=== PATIENT | male | born 1950 | race Caucasian/White ===

== ENCOUNTER 2017-01-18 00:21 | Observation (INO) | payer OTHER, MEDICARE ==
--- NOTE | 2017-01-18 00:37 | PDOC ---
History of Present Illness - General Chief Complaint: Pain, Acute Stated Complaint: PAIN IN RIGHT SHOULDER INTO BACK Time Seen by Provider: 01/18/17 00:28 History Source: Patient Exam Limitations: No Limitations - History of Present Illness Initial Comments: 01/18/17 00:37 This is a healthy 66-year-old male who denies any prior medical history. Patient said he takes no medications and is healthy. Patient comes in complaining of Both anterior and posterior chest pain. Patient said pain is worse when he takes a deep breath. Patient denies any cough, congestion or upper respiratory tract symptoms. Patient denies any nausea vomiting or diarrhea. Patient said that he has had no fevers but feels kind of sweaty here in the emergency room. Patient said that he has had some pain in his right shoulder and right flank recently but they had resolved and then today developed pain in his abdomen which has also resolved and then tonight the pain started in his chest. Patient denies any history of smoking, illegal drug use, . There is a questionable family history of heart disease patient said that his grandparents on both sides in their 40s of a heart problem but he does not know what it is C said otherwise no one else has had a heart attack or coronary artery disease. PAST MEDICAL HISTORY: no significant history PAST SURGICAL HISTORY: no significant history FAMILY HISTORY: no pertinant history SOCIAL HISTORY: Pt lives with family and is employed. MEDICATIONS: reviewed ALLERGIES: As per nursing notes Review of Systems General: No fevers or chills, no weakness, no weight loss HEENT: No change in vision. No sore throat,. No ear pain CardioVascular: No chest pain or shortness of breath Respiratory:No cough, or wheezing. Gastrointestinal: no nausea, vomitting, diarrhea or constipation, No rectal bleeding Genitourinary: No dysuria, hematuria, or frequency Musculoskeletal: No joint or muscle pain or swelling Neurologic: No headache, vertigo, dizziness or loss of consciousness Psychiatric: nor depression Skin: No rashes or easy bruising Endocrine: no increased thirst or abnormal weight change Allergic: no skin or latex allergy All other systems reviewed and normal Exam: General: Well-nourished well-developed individual, no acute distress HEENT: Throat: Normal, tonsils normal, no erythema or exudate Neck: Supple, no meningeal signs, no lymphadenopathy Eyes::Pupils equal reactive and round, extraocular motion intact Chest: Nontender to palpation Cardiac: S1-S2 normal, regular rate and rhythm, no murmurs rubs or gallops Respiratory: Lungs clear to auscultation bilateral Abdomen: Soft, nondistended, normal bowel sounds, nontender to palpation diffusely Extremities: Warm, dry, no cyanosis, clubbing, or edema Skin: No rashes Neuro: Alert and oriented x3, nonfocal exam, grossly intact, normal gait Psych: Normal mood and affect 01/18/17 00:52 EKG atrial fibrillation at rate of [address]-T wave changes Patient earlier denied any prior medical history but when asked if he had ever had an abnormal EKG he said that he had a rapid heat heartbeat at some point in the past, last episode was approximately 15 years ago he does not know what it was called but he said they told him it was benign in that he did not need to do anything about it and it resolved fairly quickly on its own. And he has not had palpitations or rapid heartbeat since. Patient will be admitted to an inpatient observation bed to rule out acute coronary syndrome and for further evaluation and management of his atrial fibrillation. Discussed with hospitalist who accepted admission. Past History - Past Medical History Allergies/Adverse Reactions: Allergies Allergy/AdvReac Type Severity Reaction Status Date / Time hydrocortisone acetate Allergy Severe Difficulty Verified 04/16/13 06:29 [From Hydrocortone Acetate] Breathing Home Medications: Ambulatory Orders Amoxicillin - [Amoxicillin 875mg Tablet -] 875 mg PO BID 04/16/13 GI Disorders: Yes (DIVERTICULITIS) Suicide Attempt (Hx): No Other medical history: PERIPHERAL NEUROPATHY - Surgical History Abdominal Surgery: Yes (VENTRAL HERNIA REPAIR) - Psycho/Social/Smoking Cessation Hx Anxiety: No Suicidal Ideation: No Smoking Status: No Smoking History: Never smoked Have you smoked in the past 12 months: No Number of Cigarettes Smoked Daily: 0 Information on smoking cessation initiated: No Hx Alcohol Use: No Drug/Substance Use Hx: No Substance Use Type: None *Physical Exam - Vital Signs Last Vital Signs Temp Pulse Resp BP Pulse Ox 97.6 F 90 18 118/64 97 01/18/17 00:23 01/18/17 00:23 01/18/17 00:23 01/18/17 00:23 01/18/17 00:23 ED Treatment Course - LABORATORY CBC & Chemistry Diagram: 01/18/17 00:45 01/18/17 00:45 *DC/Admit/Observation/Transfer Diagnosis at time of Disposition: New onset a-fib, Chest pain - Discharge Dispostion Disposition: HOME Condition at time of disposition: Stable Admit: Yes
[2017-01-18] MEDS ORDERED: KETOROLAC TROMETHAMINE 30 MG/1 ML VIAL IVPUSH ONE (00:40)
[2017-01-18] MEDS ORDERED: dilTIAZem HCL 60 MG TABLET (FP) PO ONE (00:53)
[2017-01-18] MEDS ORDERED: KETOROLAC TROMETHAMINE 30 MG/1 ML VIAL ONE (00:54)
[2017-01-18] MEDS ORDERED: ASPIRIN 81 MG CHEWABLE TABLETS PO ONE (00:58)
[2017-01-18] MEDS ORDERED: ASPIRIN 81 MG CHEWABLE TABLETS ONE (01:04)
[2017-01-18] MEDS ORDERED: dilTIAZem HCL 30 MG TABLET (FP) ONE (01:04)
[2017-01-18 01:10] LABS: URINE APPEARANCE CLEAR; URINE BILIRUBIN NEGATIVE (NEGATIVE); URINE BLOOD NEGATIVE (NEGATIVE); URINE COLOR YELLOW; URINE GLUCOSE (UA) NEGATIVE (NEGATIVE); URINE KETONE NEGATIVE (NEGATIVE); URINE LEUK ESTERASE NEGATIVE (NEGATIVE); URINE NITRITE NEGATIVE (NEGATIVE); URINE PROTEIN NEGATIVE (NEGATIVE); URINE UROBILINOGEN NEGATIVE mg/dL (0.2-1.0)
[2017-01-18 01:13] LABS: BASOPHIL 0.4 % (0-2.0); EOSINOPHIL 1.4 % (0-4.5); MCH 30.1 pg (25.7-33.7); MCHC 34.1 g/dl (32.0-35.9); MEAN CELL VOLUME 88.3 fl (80-96); MEAN PLT VOLUME 8.3 fl (7.5-11.1); NEUTROPHILS 71.7 % (42.8-82.8); PLATELET COUNT 273 K/MM3 (134-434); WHITE BLOOD COUNT 9.6 K/mm3 (4.0-10.0)
[2017-01-18 01:49] LABS: ALBUMIN 3.7 g/dl (3.4-5.0); ALK PHOS 76 U/L (45-117); ANION GAP 8 (8-16); BILIRUBIN,TOTAL 0.5 mg/dL (0.2-1.0); CALCIUM 8.9 mg/dL (8.5-10.1); CO2 30 mmol/L (21-32); CREATININE 1.4 mg/dL (0.7-1.3); GLUCOSE,RANDOM 102 mg/dL (74-106); SGOT/AST 17 U/L (15-37); SGPT/ALT 27 U/L (12-78); TOT PROT 7.6 g/dl (6.4-8.2)
[2017-01-18 02:09] LABS: CPK 92 IU/L (39-308)
[2017-01-18 02:10] LABS: TROPONIN I < 0.02 ng/ml (0.00-0.05)
[2017-01-18 02:49] LABS: INR 1.05 (0.82-1.09); PROTHROMBIN TIME (PATIENT) 11.6 SEC (9.98-11.88)
[2017-01-18] MEDS ORDERED: SODIUM CHLORIDE 1,000 ML IV ONE (03:57)
[2017-01-18 05:30] VITALS: BMI 26.6
[2017-01-18] MEDS ORDERED: HEPARIN NA (PORCINE) 5,000 UNITS/ML 1ML VIAL SQ SCH (06:00)
[2017-01-18 08:19] LABS: CHOLESTEROL 182 mg/dl; CPK 64 IU/L (39-308); MAGNESIUM 2.1 mg/dL (1.8-2.4); PHOSPHOROUS 3.2 mg/dl (2.5-4.6)
[2017-01-18 09:07] LABS: TROPONIN I (DFP) < 0.03 ng/ml (0.03-0.50)
[2017-01-18 10:14] LABS: THYROID STIMULATING HORMONE 3.17 uIU/ml (0.358-3.74)
--- NOTE | 2017-01-18 11:00 | HP ---
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 He states that he has had right shoulder pain for 1 week for which he saw his chiropractor 5 times last week with minimal improvement. The pain from his shoulder slowly moved down his right side into right hip and pelvis. He took 1 dose of Motrin 600mg which relieved the pain. Approximately 6-8 hours after taking the Motrin the pain returned and was now in his chest. 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 " He had diaphoresis and reports weakness and fatigue worsening over the past month. He denies fevers, nausea, vomiting, SOB, dizziness or coughing. He states his last EGD showed no esophageal dysplasia. ER course was notable for: (1) New onset A-fib (2) CTA(-) (3) CXR- No Acute pathology or change from previous film (4) mildly elevated BNP Recent Travel: denies PAST MEDICAL HISTORY: Kirk's esophagus PAST SURGICAL HISTORY: denies Social History: Smoking: denies Alcohol: occasional Drugs: denies Allergies hydrocortisone acetate [From Hydrocortone Acetate] Allergy (Severe, Verified 07/28 06:29) Difficulty Breathing HOME MEDICATIONS: Home Medications Medication Instructions Recorded Amoxicillin - [Amoxicillin 875mg 875 mg PO BID 04/16/13 Tablet -] REVIEW OF SYSTEMS CONSTITUTIONAL: Present- diaphoresis, generalized weakness, malaise Absent: fever, chills, loss of appetite, weight change HEENT: Absent: rhinorrhea, nasal congestion, throat pain, throat swelling, difficulty swallowing, mouth swelling, ear pain, eye pain, visual changes CARDIOVASCULAR: Present- chest pain, palpitations, irregular heart rate Absent: syncope, lightheadedness, peripheral edema RESPIRATORY: Absent: cough, shortness of breath, dyspnea with exertion, orthopnea, wheezing, stridor, hemoptysis GASTROINTESTINAL: Absent: abdominal pain, abdominal distension, nausea, vomiting, diarrhea, constipation, melena, hematochezia GENITOURINARY: Absent: dysuria, frequency, urgency, hesitancy, hematuria, flank pain, genital pain MUSCULOSKELETAL: Absent: myalgia, arthralgia, joint swelling, back pain, neck pain SKIN: Absent: rash, itching, pallor HEMATOLOGIC/IMMUNOLOGIC: Absent: easy bleeding, easy bruising, lymphadenopathy, frequent infections ENDOCRINE: Absent: unexplained weight gain, unexplained weight loss, heat intolerance, cold intolerance NEUROLOGIC: Absent: headache, focal weakness or paresthesias, dizziness, unsteady gait, seizure, mental status changes, bladder or bowel incontinence PSYCHIATRIC: Absent: anxiety, depression, suicidal or homicidal ideation, hallucinations. PHYSICAL EXAMINATION Vital Signs - 24 hr 01/18/17 01/18/17 01/18/17 03:33 05:20 07:00 Temperature 97.7 F 97.7 F Pulse Rate 72 79 Pulse Rate [ 80 Left] Respiratory 18 18 18 Rate Blood Pressure 93/62 96/52 Blood Pressure 101/74 [Right] O2 Sat by Pulse 97 98 Oximetry (%) 01/18/17 01/18/17 01/18/17 07:10 09:00 09:25 Temperature 98.4 F Pulse Rate 76 Pulse Rate [ Left] Respiratory 18 18 Rate Blood Pressure 114/56 Blood Pressure [Right] O2 Sat by Pulse 97 97 Oximetry (%) GENERAL: Awake, alert, and fully oriented, in no acute distress. HEAD: Normal with no signs of trauma. EYES: Pupils equal, round and reactive to light, extraocular movements intact, sclera anicteric, conjunctiva clear. No lid lag. EARS, NOSE, THROAT: Ears normal, nares patent, oropharynx clear without exudates. Moist mucous membranes. NECK: Normal range of motion, supple without lymphadenopathy, JVD, or masses. LUNGS: Breath sounds equal, clear to auscultation bilaterally. No wheezes, and no crackles. No accessory muscle use. HEART: Irregular rate and rhythm, normal S1 and S2 with 2/6 systolic murmur at LSB, rub or gallop. ABDOMEN: Soft, nontender, not distended, normoactive bowel sounds, no guarding, no rebound, no masses. No hepatomegaly or splenomegaly. (-) Dow's MUSCULOSKELETAL: Normal range of motion at all joints. No bony deformities or tenderness. No CVA tenderness. UPPER EXTREMITIES: 2+ pulses, warm, well-perfused. No cyanosis. No clubbing. No peripheral edema. LOWER EXTREMITIES: 2+ pulses, warm, well-perfused. No calf tenderness. No peripheral edema. NEUROLOGICAL: Cranial nerves II-XII intact. Normal speech. Normal gait. PSYCHIATRIC: Cooperative. Good eye contact. Appropriate mood and affect. SKIN: Warm, dry, normal turgor, no rashes or lesions noted, normal capillary refill. Laboratory Results - last 24 hr 01/18/17 01/18/17 01/18/17 02:39 06:00 06:00 INR 1.05 Hemoglobin A1c % 5.7 Phosphorus 3.2 Magnesium 2.1 Creatine Kinase 64 Troponin I < 0.03 L B-Natriuretic Peptide 808.56 H Triglycerides 136 Cholesterol 182 Total LDL Cholesterol 130 HDL Cholesterol 25 L TSH 3.17 ASSESSMENT/PLAN: A: 66yo man with PMH Kirk's esophagus who has chest pressure and new onset a- fib. P: 1. Chest pain (atypical)- ACS vs Kirk's - troponins (-) x2 - serial trop - mildly elevated BNP- echo pending - EKG with new onset afib - initiate NOAC - ASA 81mg held - telemetry - Cardiology Tamiko consulted 2. New onset A-fib - Start Xarelto 20mg - telemetry - [id number] - Metoprolol started by Tamiko Morrison consulted 3. h/o Kirk's esophagus - f/u as outpatient 4. F/E/N - Low Na diet - replete prn 5. PPX - OOB - NOAC Dispo- requires observation of acute medical conditions Visit type - Emergency Visit Emergency Visit: Yes ED Registration Date: 01/18/17 Care time: The patient presented to the Emergency Department on the above date and was hospitalized for further evaluation of their emergent condition. - New Patient This patient is new to me today: Yes Date on this admission: 01/18/17 - Critical Care Critical Care patient: No
--- NOTE | 2017-01-18 12:06 | CON.CARD ---
Consult Consult Specialty:: Cardiology Referred by:: Hospitalist Service Reason for Consultation:: Cardiac evaluation - History of Present Illness Chief Complaint: New onset AF with chest discomfort History of Present Illness: Patient is a 66 year old male with history of Severino's esophagus who presents with mid sternal/epigastric discomfort/pressure and palpitation. He has been feeling weak for past 1 month and also complained of right shoulder pain for over a week for which he saw a chiropractor. He also took Motrin 600mg which did relieve the pain. He came in once he started to have this mid sternal pressure and sweating. ECG revealed atrial fibrillation. He was given a shot of Lovenox and was given Diltiazem. He is awake and alert. He denies paroxysmal nocturnal dyspnea or orthopnea. He denies fever or chills. He denies headache or lightheadedness. He reports of heart rhythm problem about 30 years ago and had seen a director of vocational guidance, but no further intervention or treatment was given at that time. He has not taken any other medication for the past 40 years. He denies shortness of breath. Cardiology consultation was called for further evaluation. - History Source History Provided By: Patient, Family Member, Medical Record Limitations to Obtaining History: No Limitations - Past Medical History Gastrointestinal: Yes: Other (Severino's esophagus) - Past Surgical History Additional Surgical History: Abdominal hernia surgery - Alcohol/Substance Use Hx Alcohol Use: No History of Substance Use: reports: None - Smoking History Smoking history: Never smoked Have you smoked in the past 12 months: No Aproximately how many cigarettes per day: 0 Home Medications - Allergies Allergies/Adverse Reactions: Allergies Allergy/AdvReac Type Severity Reaction Status Date / Time hydrocortisone acetate Allergy Severe Difficulty Verified 04/16/13 06:29 [From Hydrocortone Acetate] Breathing - Home Medications Home Medications: Ambulatory Orders Amoxicillin - [Amoxicillin 875mg Tablet -] 875 mg PO BID 04/16/13 Review of Systems - Review of Systems Constitutional: denies: Chills, Fever Cardiovascular: reports: Chest Pain, Palpitations. denies: Shortness of Breath Respiratory: reports: SOB. denies: Cough, Hemoptysis, Orthopnea, PND, Wheezing Gastrointestinal: reports: Constipation. denies: Abdominal Pain, Diarrhea, Melena, Nausea, Rectal Bleeding, Vomiting Genitourinary: denies: Dysuria Musculoskeletal: denies: Joint Pain Neurological: denies: Confusion, Dizziness, Headache, Numbness, Seizure, Syncope Vital Signs: Vital Signs Temperature 98.4 F 01/18/17 09:25 Pulse Rate 76 01/18/17 09:25 Respiratory Rate 18 01/18/17 09:25 Blood Pressure 114/56 01/18/17 09:25 O2 Sat by Pulse Oximetry (%) 97 01/18/17 09:00 Neck: Yes: Supple Respiratory: Yes: CTA Bilaterally Gastrointestinal: Yes: Normal Bowel Sounds, Soft. No: Tenderness Cardiovascular: Yes: Pulse Irregular JVD: No Carotid Bruit: No PMI: Non-Displaced Heart Sounds: Yes: S1, S2. No: Gallop Murmur: Yes: Systolic Murmur, Grade 1 Edema: No - Other Data Labs, Other Data: INR, PTT INR 1.05 (0.82-1.09) 01/18/17 02:39 Troponin, BNP 01/18/17 06:00 Troponin I < 0.03 L B-Natriuretic Peptide 808.56 H Laboratory Results - last 24 hr 01/18/17 01/18/17 01/18/17 00:45 00:45 00:45 WBC 9.6 D RBC 5.22 Hgb 15.7 Hct 46.1 MCV 88.3 MCH 30.1 MCHC 34.1 RDW 13.0 Plt Count 273 D MPV 8.3 Neutrophils % 71.7 Lymphocytes % 18.8 D Monocytes % 7.7 Eosinophils % 1.4 Basophils % 0.4 INR D-Dimer 554 H Sodium 140 Potassium 4.2 Chloride 102 Carbon Dioxide 30 Anion Gap 8 BUN 29 H D Creatinine 1.4 H D Creat Clearance w eGFR 50.40 Random Glucose 102 Hemoglobin A1c % Calcium 8.9 Phosphorus Magnesium Total Bilirubin 0.5 D AST 17 ALT 27 D Alkaline Phosphatase 76 D Creatine Kinase Troponin I B-Natriuretic Peptide Total Protein 7.6 Albumin 3.7 Triglycerides Cholesterol Total LDL Cholesterol HDL Cholesterol Lipase 274 TSH Urine Color Urine Appearance Urine pH Ur Specific Mcgraw Urine Protein Urine Glucose (UA) Urine Ketones Urine Blood Urine Nitrite Urine Bilirubin Urine Urobilinogen Ur Leukocyte Esterase 01/18/17 01/18/17 01/18/17 01:02 01:26 02:39 WBC RBC Hgb Hct MCV MCH MCHC RDW Plt Count MPV Neutrophils % Lymphocytes % Monocytes % Eosinophils % Basophils % INR 1.05 D-Dimer Sodium Potassium Chloride Carbon Dioxide Anion Gap BUN Creatinine Creat Clearance w eGFR Random Glucose Hemoglobin A1c % Calcium Phosphorus Magnesium Total Bilirubin AST ALT Alkaline Phosphatase Creatine Kinase 92 Troponin I < 0.02 B-Natriuretic Peptide Total Protein Albumin Triglycerides Cholesterol Total LDL Cholesterol HDL Cholesterol Lipase TSH Urine Color Yellow Urine Appearance Clear Urine pH 5.0 Ur Specific Mcgraw >= 1.030 H Urine Protein Negative Urine Glucose (UA) Negative Urine Ketones Negative Urine Blood Negative Urine Nitrite Negative Urine Bilirubin Negative Urine Urobilinogen Negative Ur Leukocyte Esterase Negative 01/18/17 01/18/17 06:00 06:00 WBC RBC Hgb Hct MCV MCH MCHC RDW Plt Count MPV Neutrophils % Lymphocytes % Monocytes % Eosinophils % Basophils % INR D-Dimer Sodium Potassium Chloride Carbon Dioxide Anion Gap BUN Creatinine Creat Clearance w eGFR Random Glucose Hemoglobin A1c % 5.7 Calcium Phosphorus 3.2 Magnesium 2.1 Total Bilirubin AST ALT Alkaline Phosphatase Creatine Kinase 64 Troponin I < 0.03 L B-Natriuretic Peptide 808.56 H Total Protein Albumin Triglycerides 136 Cholesterol 182 Total LDL Cholesterol 130 HDL Cholesterol 25 L Lipase TSH 3.17 Urine Color Urine Appearance Urine pH Ur Specific Mcgraw Urine Protein Urine Glucose (UA) Urine Ketones Urine Blood Urine Nitrite Urine Bilirubin Urine Urobilinogen Ur Leukocyte Esterase Atrial fibrillation at 93 bpm, no ST-T abnormality Echo: Pending Imaging - Results Chest X-ray: Report Reviewed (Unremarkable) Cat Scan: Report Reviewed (Chest CTA - no pulmonary embolism) EKG: Report Reviewed Problem List - Problems (1) Chest pain Code(s): R07.9 - CHEST PAIN, UNSPECIFIED Qualifiers: Chest pain type: unspecified Qualified Code(s): R07.9 - Chest pain, unspecified (2) New onset a-fib Code(s): I48.91 - UNSPECIFIED ATRIAL FIBRILLATION (3) Severino esophagus Code(s): K22.70 - SEVERINO'S ESOPHAGUS WITHOUT DYSPLASIA Qualifiers: Severino's esophagus type: without dysplasia Qualified Code(s): K22.70 - Severino's esophagus without dysplasia Assessment/Plan 1. New onset atrial fibrillation - [id number] score of 1 2. Chest pain syndrome - atypical with negative troponin 3. History of Severino's esophagus 4. Elevated creatinine - acute on chronic kidney ?dehydration 5. Borderline hypercholesterolemia PLAN: 1. As his [id number] score is 1, he would most likely need ASA, but for now would use NOAC short term. May use Xarelto 20 mg once a day. Add Metoprolol 25 mg BID. ASA may be held for now. 2. Transthoracic echocardiography to assess LV/RV and valvular function 3. If patient remains in AF, may consider MUSA +/- synchronized cardioversion 4. Eventually may consider stress testing, but this can be done as outpatient. 5. Serial cardiac enzymes 6. Hydration and monitor renal function Further plans are to follow Eric Morrison MD
[2017-01-18 12:34] LABS: CPK 72 IU/L (39-308)
[2017-01-18 12:45] LABS: TROPONIN I (DFP) < 0.03 ng/ml (0.03-0.50)
[2017-01-18] MEDS: METOPROLOL TARTRATE 25 MG TABLET (FP) PO SCH ×2 (14:09→22:05)
[2017-01-18] MEDS ORDERED: RIVAROXABAN 20 MG TABLET PO SCH (15:00)
[2017-01-18] MEDS ORDERED: RIVAROXABAN 10 MG TABLET PO SCH (15:00)
[2017-01-18] MEDS: RIVAROXABAN 10 MG TABLET PO SCH (15:23)
--- NOTE | 2017-01-19 07:32 | EKG ---
Test Reason : Blood Pressure : / mmHG Vent. Rate : 113 BPM Atrial Rate : 150 BPM P-R Int : 000 ms QRS Dur : 092 ms QT Int : 334 ms P-R-T Axes : 000 034 039 degrees QTc Int : 458 ms ATRIAL FIBRILLATION WITH RAPID VENTRICULAR RESPONSE ABNORMAL ECG WHEN COMPARED WITH ECG OF 16-APR-2013 06:30, ATRIAL FIBRILLATION HAS REPLACED SINUS RHYTHM VENT. RATE HAS INCREASED BY 55 BPM Confirmed by GARRICK GOLDSMITH MD ([id number]) on 01/19/2017 7:32:04 AM Referred By: Confirmed By:GARRICK GOLDSMITH MD
--- NOTE | 2017-01-19 08:56 | EKG ---
Test Reason : Blood Pressure : / mmHG Vent. Rate : 093 BPM Atrial Rate : 357 BPM P-R Int : 000 ms QRS Dur : 094 ms QT Int : 366 ms P-R-T Axes : 000 029 024 degrees QTc Int : 455 ms ATRIAL FIBRILLATION ABNORMAL ECG WHEN COMPARED WITH ECG OF 18-JAN-2017 00:50, Ventricular rate has decreased Confirmed by GARRICK GOLDSMITH MD ([id number]) on 01/19/2017 8:56:02 AM Referred By: JAGDISH VALENTIN Confirmed By:GARRICK GOLDSMITH MD
[2017-01-19] MEDS: METOPROLOL TARTRATE 25 MG TABLET (FP) PO SCH ×2 (09:44→21:17)
[2017-01-19] MEDS: RIVAROXABAN 10 MG TABLET PO SCH (09:44)
[2017-01-19] MEDS ORDERED: ASPIRIN 81 MG CHEWABLE TABLETS PO SCH (10:00)
--- NOTE | 2017-01-19 12:37 | PN ---
Physical Exam: SUBJECTIVE: Patient seen and examined, patient is ambulatory at the bedside, denies any chest pain or shortness of breath. OBJECTIVE: patient is a a 66yo man with PMH Kirk's esophagus Vital Signs Period Temp Pulse Resp BP Sys/Luu Pulse Ox Last 24 Hr 97.7 F-98.5 F 50-85 17-18 101-108/52-61 96-99 GENERAL: The patient is awake, alert, and fully oriented, in no acute distress. HEAD: Normal with no signs of trauma. EYES: PERRL, extraocular movements intact, sclera anicteric, conjunctiva clear. No ptosis. ENT: Ears normal, nares patent, oropharynx clear without exudates, moist mucous membranes. NECK: Trachea midline, full range of motion, supple. LUNGS: Breath sounds equal, clear to auscultation bilaterally, no wheezes, no crackles, no accessory muscle use. HEART: Regular rate and rhythm, S1, S2 without murmur, rub or gallop. ABDOMEN: Soft, nontender, nondistended, normoactive bowel sounds, no guarding, no rebound, no hepatosplenomegaly, no masses. EXTREMITIES: 2+ pulses, warm, well-perfused, no edema. NEUROLOGICAL: Cranial nerves II through XII grossly intact. Normal speech, gait not observed. PSYCH: Normal mood, normal affect. SKIN: Warm, dry, normal turgor, no rashes or lesions noted Laboratory Results - last 24 hr 01/18/17 12:00 Creatine Kinase 72 Troponin I < 0.03 L Active Medications Generic Name Dose Route Start Last Admin Trade Name Freq PRN Reason Stop Dose Admin Metoprolol Tartrate 25 mg 01/18/17 12:30 01/19/17 09:44 Lopressor - PO 25 mg BID AKUA Administration Rivaroxaban 20 mg 01/18/17 15:15 01/19/17 09:44 Xarelto - PO 20 mg DAILY AKUA Administration ASSESSMENT/PLAN: 1. card: new onset afib - pt converted to NSR - troponin x 3 wnl - continue xarelto - pending echo - Dr Morrison, cardiology consulted and following 2.GI: h/o Kirk's esophagus - f/u as outpatient 4. F/E/N - Low Na diet - replete prn 5. PPX - OOB - NOAC Dispo- requires observation of acute medical conditions Visit type - Emergency Visit Emergency Visit: Yes ED Registration Date: 01/18/17 Care time: The patient presented to the Emergency Department on the above date and was hospitalized for further evaluation of their emergent condition. - New Patient This patient is new to me today: No - Critical Care Critical Care patient: No - Discharge Referral Referred to [facility] No
[2017-01-19 17:09] LABS: ANION GAP 3 (8-16); CALCIUM 8.4 mg/dl (8.4-10.2); CO2 30 mmol/L (22-28); CREATININE 0.9 mg/dl (0.6-1.3); GLUCOSE,RANDOM 97 mg/dl (74-106)
[2017-01-19 17:11] LABS: BASOPHIL 0.8 % (0-2.0); EOSINOPHIL 2.5 % (0-4.5); MCH 30.4 pg (25.7-33.7); MCHC 35.2 g/dl (32.0-35.9); MEAN CELL VOLUME 86.6 fl (80-96); MEAN PLT VOLUME 8.6 fl (7.5-11.1); NEUTROPHILS 65.8 % (42.8-82.8); PLATELET COUNT 199 K/MM3 (134-434); RDW 12.1 % (11.9-15.9)
[2017-01-20 07:05] VITALS: TEMP 97.7
--- NOTE | 2017-01-20 11:14 | DS ---
Physical Exam: SUBJECTIVE: Patient seen and examined, reports feeling well,ambulatory at bedside, denies any OBJECTIVE: This is a 66yo man with PMH Kirk's esophagus who presents today with sub-sternal chest pressure and palpitations. He states that he has had right shoulder pain for 1 week for which he saw his chiropractor 5 times last week with minimal improvement. The pain from his shoulder slowly moved down his right side into right hip and pelvis. He took 1 dose of Motrin 600mg which relieved the pain. Approximately 6-8 hours after taking the Motrin the pain returned and was now in his chest. 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 " He had diaphoresis and reports weakness and fatigue worsening over the past month. He denies fevers, nausea, vomiting, SOB, dizziness or coughing. He states his last EGD showed no esophageal dysplasia. ER course was notable for: (1) New onset A-fib (2) CTA(-) (3) CXR- No Acute pathology or change from previous film (4) mildly elevated BNP Vital Signs Period Temp Pulse Resp BP Sys/Luu Pulse Ox Last 24 Hr 97.5 F-97.7 F 50-58 18-18 95-114/60-70 96-97 PHYSICAL EXAM GENERAL: The patient is awake, alert, and fully oriented, in no acute distress. HEAD: Normal with no signs of trauma. EYES: PERRL, extraocular movements intact, sclera anicteric, conjunctiva clear. ENT: Ears normal, nares patent, oropharynx clear without exudates, moist mucous membranes. NECK: Trachea midline, full range of motion, supple. LUNGS: Breath sounds equal, clear to auscultation bilaterally, no wheezes, no crackles, no accessory muscle use. HEART: Regular rate and rhythm, S1, S2 without murmur, rub or gallop. ABDOMEN: Soft, nontender, nondistended, normoactive bowel sounds, no guarding, no rebound, no hepatosplenomegaly, no masses. EXTREMITIES: 2+ pulses, warm, well-perfused, no edema. NEUROLOGICAL: Cranial nerves II through XII grossly intact. Normal speech, gait not observed. PSYCH: Normal mood, normal affect. SKIN: Warm, dry, normal turgor, no rashes or lesions noted. LABS Laboratory Results - last 24 hr 01/19/17 01/19/17 16:17 16:17 WBC 4.0 D RBC 4.18 Hgb 12.7 Hct 36.2 MCV 86.6 MCH 30.4 MCHC 35.2 RDW 12.1 Plt Count 199 MPV 8.6 Neutrophils % 65.8 Lymphocytes % 24.8 D Monocytes % 6.1 Eosinophils % 2.5 D Basophils % 0.8 Sodium 135 L Potassium 4.2 Chloride 102 Carbon Dioxide 30 H Anion Gap 3 L BUN 15 Creatinine 0.9 Random Glucose 97 Calcium 8.4 Laboratory Tests 01/18/17 01/18/17 01/18/17 01:26 06:00 12:00 Troponin I < 0.02 < 0.03 L < 0.03 L HOSPITAL COURSE: * patient was admitted from the emergency department for new onset afib. He was placed on continous cardiac and immediately started on xarelto monitoring and given lopressor 5mg iv x1. patient was placed on toprol 25mg bid, hr rated was noted to be in the 40's, toprol was titrated to 12.5mg daily with good resultes. patient converted to NSR, troponin x 3 wnl. echo 45-50%, mild left global hypokinesis. Dr. Morrison, cardiology consulted and following * patient has a pmh of h/o Kirk's esophagus, f/u as outpatient PLAN - continue xarelto and toprol daily - f/u with Dr Morrison cardiology within 1 week - return precautions reviewed, ie chest pain, shortenss of breath, pt must return to the emergency department. Date of Admission:01/18/17 Date of Discharge: 01/20/17 Minutes to complete discharge: 45 Discharge Summary Reason For Visit: NEW ONSET A-FIB, CHEST PAIN Current Active Problems Kirk esophagus (Acute) Chest pain (Acute) New onset a-fib (Acute) Condition: Improved - Instructions Diet, Activity, Other Instructions: resume low sodium/cholesterol diet continue lopressor 12.5mg daily and xarelto as prescribed please follow up with the lead java programmer within 1 week if any new or persistent symptoms develop please return to the emergency department. Referrals: Eric Morrison MD [Staff Physician] - Disposition: HOME - Home Medications Comprehensive Discharge Medication List: Ambulatory Orders Rivaroxaban [Xarelto -] 20 mg PO DAILY #30 tablet 01/19/17 Metoprolol Tartrate [Lopressor -] 12.5 mg PO DAILY #30 tablet 01/20/17 Problem List - Problems (1) New onset a-fib Code(s): I48.91 - UNSPECIFIED ATRIAL FIBRILLATION (2) Paroxysmal a-fib Code(s): I48.0 - PAROXYSMAL ATRIAL FIBRILLATION This patient is new to me today: No Emergency Visit: Yes ED Registration Date: 01/18/17 Care time: The patient presented to the Emergency Department on the above date and was hospitalized for further evaluation of their emergent condition. Critical Care patient: No - Discharge Referral Referred to [facility] No
[2017-01-20] MEDS ORDERED: METOPROLOL SUCCINATE 25 MG TAB.SR.24H (FP) PO SCH (11:15)
[2017-01-20] MEDS: METOPROLOL TARTRATE 25 MG TABLET (FP) PO SCH (11:16)
[2017-01-20] MEDS: RIVAROXABAN 10 MG TABLET PO SCH (11:28)
[2017-01-20 14:07] VITALS: BP 106/56; PULSE 56
--- NOTE | 2017-01-20 20:57 | EKG ---
Test Reason : Blood Pressure : / mmHG Vent. Rate : 052 BPM Atrial Rate : 052 BPM P-R Int : 168 ms QRS Dur : 122 ms QT Int : 450 ms P-R-T Axes : 054 015 034 degrees QTc Int : 418 ms SINUS BRADYCARDIA NON-SPECIFIC INTRA-VENTRICULAR CONDUCTION DELAY BORDERLINE ECG WHEN COMPARED WITH ECG OF 18-JAN-2017 09:27, SINUS RHYTHM HAS REPLACED ATRIAL FIBRILLATION VENT. RATE HAS DECREASED BY 41 BPM QRS DURATION HAS INCREASED PERSISTANT EMBRONIC Q IN V2 Confirmed by KAMILAH MIKE MD ([id number]) on 01/20/2017 8:57:10 PM Referred By: MD HEBERT Confirmed By:KAMILAH MIKE MD
== END 2017-01-20 14:10 | disposition home or self-care (01) ==
LOC: FER 00:21 → FM/S 02:23
PROVIDERS: ADMIT Internal Medicine; ATTEND Nurse Practitioner Family
PROC: 3E033GC Introduction of Other Therapeutic Substance into Peripheral Vein, Percutaneous Approach (ICD-10-PCS; principal; 2017-01-18)
PROC: 3E013GC Introduction of Other Therapeutic Substance into Subcutaneous Tissue, Percutaneous Approach (ICD-10-PCS; 2017-01-18)
PROC: 3E0337Z Introduction of Electrolytic and Water Balance Substance into Peripheral Vein, Percutaneous Approach (ICD-10-PCS; 2017-01-18)
DX: R07.9 Chest pain, unspecified (principal); I48.91 Unspecified atrial fibrillation; K22.70 Barrett's esophagus without dysplasia; Z88.8 Allergy status to other drugs, medicaments and biological substances
CPT/HCPCS: 36415; 71010-TC; 71275-TC; 80048; 80053; 80061; 81003; 83036; 83690; 83735; 83880; 84100; 84443; 84484; 85025; 85379; 85610; 93005; 93010; 93306-TC; 99282-25; G0378; J1644

== ENCOUNTER 2017-08-21 15:24 | Emergency (ER) | payer MEDICARE, OTHER ==
[2017-08-21 15:35] VITALS: BP 127/74; PULSE 58; TEMP 97.5; BMI 26.2
[2017-08-21] MEDS ORDERED: IBUPROFEN 400 MG TABLET (FP) PO ONE ×2 (16:23→16:47)
[2017-08-21] MEDS ORDERED: CYCLOBENZAPRINE HCL 5 MG TABLET PO ONE (16:23)
--- NOTE | 2017-08-21 16:24 | PDOC ---
History of Present Illness <Gurdeep Hernandez - Last Filed: 08/21/17 16:26> - General History Source: Patient Exam Limitations: No Limitations - History of Present Illness Initial Comments: 08/21/17 19:44 The patient is a 66 year old male, with a significant past medical history of paroxysmal AFib that converted to normal sinus rhythm, peripheral neuropathy of unknown etiology(had neuro f/u where an EMG was done which was negative), and diverticulitis who presents to the emergency department with bilateral back pain for approximately 3 days. The patient reports sudden onset of back pain s/ p standing up from the toilet. Patient describes his pain as a hot fire, throbbing twisting towel spasm. He rates his pain a 10/10. He reports his pain is exacerbated when standing or trying to extend his back. He reports his pain is alleviated when applying moist heat, lying flat, and after taking tumeric. He denies any back trauma, numbness or tingling other than his baseline peripheral neuropathy, neck pain, dizziness, lightheadedness, or changes in vision. He denies any flank pain, dysuria, hematuria, frequency, urgency, urinary retention, or urinary incontinence. He denies any abdominal pain, nausea , vomiting, diarrhea, constipation, or bowel incontinence. He denies any chest pain, shortness of breath, diaphoresis, or palpitations. No fever or chills. No recent travel or sick contacts Allergies: Hydrocortisone acetate Past Surgical History: Hernia repair Social History: Non smoker. No ETOH or recreational drug use. <Clare Rodriguez - Last Filed: 08/21/17 19:45> - General Chief Complaint: Back Pain Stated Complaint: LOWER BACK PAIN Time Seen by Provider: 08/21/17 15:28 Past History - Past Medical History Cardiac Disorders: Yes (AFIB) COPD: No GI Disorders: Yes (DIVERTICULITIS,BARRETS ESOPHOGUS) - Surgical History Abdominal Surgery: Yes (VENTRAL HERNIA REPAIR) - Suicide/Smoking/Psychosocial Hx Smoking Status: No Smoking History: Never smoked Have you smoked in the past 12 months: No Number of Cigarettes Smoked Daily: 0 Information on smoking cessation initiated: No Hx Alcohol Use: No Drug/Substance Use Hx: No Substance Use Type: None Hx Substance Use Treatment: No <Gurdeep Hernandez - Last Filed: 08/21/17 16:26> <MichaelJeannettejohn - Last Filed: 08/21/17 19:45> - Past Medical History Allergies/Adverse Reactions: Allergies Allergy/AdvReac Type Severity Reaction Status Date / Time hydrocortisone acetate Allergy Severe Difficulty Verified 04/16/13 06:29 [From Hydrocortone Acetate] Breathing Home Medications: Ambulatory Orders Cyclobenzaprine HCl [Flexeril -] 10 mg PO TID #21 tablet 08/21/17 Diltiazem [Cardizem -] 30 mg PO BID 08/21/17 Ibuprofen 400 mg PO QID PRN #21 tablet 08/21/17 Review of Systems - Review of Systems Able to Perform ROS?: Yes Comments:: 08/21/17 19:44 CONSTITUTIONAL: No reported: Fever, Chills, Diaphoresis, Generalized Weakness, Malaise, Loss of Appetite HEENT: No reported: Rhinorrhea, Nasal Congestion, Throat Pain, Throat Swelling, Difficulty Swallowing, Mouth Swelling, Ear Pain, Eye Pain, Visual Changes CARDIOVASCULAR: No reported: Chest Pain, Syncope, Palpitations, Irregular Heart Rate, Lightheadedness, Peripheral Edema RESPIRATORY: No reported: Cough, Shortness of Breath, SOB with Exertion, Orthopnea GASTROINTESTINAL: No reported: Abdominal pain, Abdominal Distension, Nausea, Vomiting, Diarrhea, Constipation, Melena, Hematochezia GENITOURINARY: No reported: Dysuria, Frequency, Urgency, Hesitancy, Flank Pain, Genital Pain MUSCULOSKELETAL: Reported: Back pain No reported: Myalgia, Arthralgia, Joint Swelling, Neck Pain NEUROLOGIC: No reported: Headache, Focal Weakness, Paresthesias, Vertigo, Lightheadedness, Unsteady Gait, Seizure, Mental Status Changes, Incontinence <RodriguezClare jarrett - Last Filed: 08/21/17 19:45> *Physical Exam - Vital Signs Last Vital Signs Temp Pulse Resp BP Pulse Ox 97.5 F L 58 L 20 127/74 100 08/21/17 15:25 08/21/17 15:25 08/21/17 15:25 08/21/17 15:25 08/21/17 15:25 <Dvaid,Gurdeep - Last Filed: 08/21/17 16:26> - Vital Signs Last Vital Signs Temp Pulse Resp BP Pulse Ox 97.5 F L 58 L 20 127/74 100 08/21/17 15:25 08/21/17 15:25 08/21/17 15:25 08/21/17 15:25 08/21/17 15:25 - Physical Exam Comments: 08/21/17 19:45 GENERAL: The patient is awake, alert, and fully oriented, Nontoxic - in no acute distress. HEAD: Normocephalic, atraumatic. EYES: extraocular movements intact, sclera anicteric, conjunctiva clear. ENT: Normal voice, Moist mucous membranes. NECK: Normal range of motion, supple LUNGS: Breath sounds equal, clear to auscultation bilaterally. No wheezes, no rhonchi, no rales. HEART: Regular rate and rhythm, without murmur, rub or gallop. BACK: No midline tenderness. No paraspinal tenderness. EXTREMITIES: Normal range of motion, no edema. No clubbing or cyanosis. No cords , erythema, or tenderness. Normal flexion/extension of hip. Negative straight leg raise bilaterally. Hip flexion of left leg seems to exacerbate pain. ABD: soft nontender, no erbound/guarding NEUROLOGICAL: No facial asymmetry, Normal speech, normal gait. Negative babinskis. Normal sensation in the lower extremities and the perineum, deminished sensation in b/l feet (chronic for 20 yrs per pt) <Clare Rodriguez - Last Filed: 08/21/17 19:45> ED Treatment Course - Medications Given in the ED: ED Medications Discontinued Medications Generic Name Dose Route Start Last Admin Trade Name Freq PRN Reason Stop Dose Admin Cyclobenzaprine HCl 10 mg 08/21/17 16:23 08/21/17 16:49 Cyclobenzaprine Hcl PO 08/21/17 16:24 10 mg NOW ONE Administration Ibuprofen 400 mg 08/21/17 16:23 08/21/17 16:50 Motrin - PO 08/21/17 16:24 Not Given ONCE ONE <Clare Rodriguez - Last Filed: 08/21/17 19:45> Medical Decision Making - Medical Decision Making 08/21/17 16:25 66y M hx of afib (not on a/c, now current sinus), presents with sudden onset of mid/lower chris pain when he sat up from the toilet 3 days ago. pain worse when he stands up, improves when he hunches over, no associated fever/chills, numbness/tingling/weakness, urinary/bowel incotninence. no prior history of back pain. suspect back spasm No focal midline tenderness to suggest acute bony pathology No Neurologic symptoms to suggest nerve impingement No clinical signs /symptoms to suggest cauda equina no fever/chills, mneuro symptoms to suggest spinalepidural abscess Will treat with Motrin, Flexeril Supportive management at home PMD follow-up I discussed the physical exam findings, ancillary test results and final diagnoses with the patient. I answered all of the patient's questions. The patient was satisfied with the care received and felt comfortable with the discharge plan and treatment plan. The patient will call their primary care physician within 24 hours to arrange follow-up and will return to the Emergency Department with any new, persistent or worsening symptoms. A portion of this note was documented by scribe services under my direction. I have reviewed the details of the note, within reason, and agree with the documentation with the following case summary and management plan written by me <Gurdeep Hernandez - Last Filed: 08/21/17 16:26> *DC/Admit/Observation/Transfer - Discharge Dispostion Admit: No <Gurdeep Hernandez - Last Filed: 08/21/17 16:26> - Attestations Scribe Attestion: 08/21/17 19:45 Documentation prepared by Clare Rodriguez, acting as medical transcription editor for Gurdeep Hernandez MD. <Clare Rodriguez - Last Filed: 08/21/17 19:45> Diagnosis at time of Disposition: Lumbar pain - Discharge Dispostion Disposition: HOME Condition at time of disposition: Stable - Prescriptions Prescriptions: Cyclobenzaprine HCl [Flexeril -] 10 mg PO TID #21 tablet Ibuprofen 400 mg PO QID PRN #21 tablet PRN Reason: Pain - Referrals Referrals: Pierre Lizama MD [Staff Physician] - - Patient Instructions Printed Discharge Instructions: DI for Low Back Pain Additional Instructions: I suspect that you're cause is muscular in nature possibly due to a back strain. The Motrin and Flexeril as prescribed for your pain. Continue to apply heat for comfort. Avoid any heavy lifting until you feel better Return if you have worsening pain, any new numbness, tingling, weakness, urinary or bowel incontinence, fevers, chills or other concerns. Follow up with your primayr care doctor next week for evaluation if you are not better. Print Language: LAO
[2017-08-21] MEDS ORDERED: CYCLOBENZAPRINE HCL 10 MG TABLET (FP) ONE (16:47)
== END 2017-08-21 16:52 | disposition home or self-care (01) ==
LOC: FER 15:24
DX: M54.5 Low back pain (principal); I48.91 Unspecified atrial fibrillation
CPT/HCPCS: 99282-25